=== PATIENT | male | born 1940 | race Caucasian/White ===

== ENCOUNTER 2017-01-24 16:30 | Inpatient (IN) | payer MEDICARE ==
[2017-01-24] MEDS ORDERED: NS 0.9% 1000 ML* 1,000 ML IV ONE (17:05)
[2017-01-24] MEDS ORDERED: Pantoprazole IV* 40 MG IV ONE (17:05)
[2017-01-24 17:50] LABS: Hematocrit 44 % (42-52); Hemoglobin 14.3 g/dl (14.0-18.0); Mean Corpuscular HGB Conc 33 g/dl (31-36); Mean Corpuscular Hemoglobin 30 pg (27-31); Mean Corpuscular Volume 93 fL (80-94); Mean Platelet Volume 9 um3 (7.4-10.4); Red Blood Count 4.75 10^6/ul (4.0-5.4); Red Cell Distribution Width 15 % (10.5-15)
[2017-01-24 18:06] LABS: Albumin 3.8 g/dL (3.2-5.2); Calcium 9.1 mg/dL (8.6-10.3); EGFR African American 118.5 (>60); EGFR Non-African American 92.2 (>60); Globulin 2.7 g/dL (2-4); Potassium 4.2 mmol/L (3.5-5.0); Total Bilirubin 0.7 mg/dL (0.2-1.0); Total Protein 6.5 g/dL (6.4-8.9)
[2017-01-24] MEDS ORDERED: Phytonadione INJ (Adult)* 10 MG/ML 1 ML AMP IV ONE (18:11)
[2017-01-24] MEDS ORDERED: Ondansetron INJ* 2 MG/ML VIAL IV ONE (18:45)
[2017-01-24] MEDS ORDERED: Ondansetron INJ* 2 MG/ML VIAL ONE (18:46)
[2017-01-24] MEDS ORDERED: Phytonadione INJ* 1 MG/0.5 ML ML IM ONE (19:00)
[2017-01-24] MEDS: NS 0.9% 1000 ML* 1,000 ML IV SCH (20:48)
[2017-01-24] MEDS: Metoprolol Tartrate IV* 1 MG/ML 5 ML VIAL IV SCH (20:53)
[2017-01-24] MEDS: Pantoprazole IV* 80 MG in NS 0.9% 250 ML* 250 ML IVPB SCH (20:53)
[2017-01-24 21:46] LABS: Hematocrit 40 % (42-52); Hemoglobin 13.4 g/dl (14.0-18.0)
[2017-01-24] MEDS ORDERED: Phytonadione INJ (Adult)* 10 MG/ML 1 ML AMP IM ONE (22:00)
[2017-01-24] MEDS ORDERED: PROCHLORPERAZINE INJ 5 MG/ML 2 ML VIAL ONE (22:07)
[2017-01-24] MEDS: PROCHLORPERAZINE INJ 5 MG/ML 2 ML VIAL IV PRN (22:08)
[2017-01-24] MEDS: Morphine INJ* 2 MG/ML 1 ML CARPUJECT IV PRN (22:49)
--- NOTE | 2017-01-24 23:08 | HP ---
CC: Dr. Hayes* ADMISSION HISTORY AND PHYSICAL: DATE OF ADMISSION: 01/24/2017. PRIMARY CARE PROVIDER: Dr. Hayes. CONSULTING MANAGER DATABASE ADMINISTRATION: Dr. Bolaños. ADMITTING PROVIDER: NÉSTOR Jamison SUPERVISING PHYSICIAN: Dr. Lee Delgado* (dictated by NÉSTOR Jamison). CHIEF COMPLAINT: Hematemesis and coffee-ground emesis. HISTORY OF PRESENT ILLNESS: This is a 76-year-old gentleman with a significant vascular history including coronary artery disease and peripheral vascular disease as well as atrial fibrillation for which he is anticoagulated with Coumadin, who presented to the emergency department with complaints of dark brown emesis and dark stools that started acutely at about 4 a.m. this morning. He reports some associated lower abdominal pain and his stools prior to today have been normal. He denies any history of prior GI bleed. He states that over the last week, he has been having lot of low back pain and took approximately 6 pills of Aleve over the last week. He generally takes oxycodone when he has pain, but that was not taking away all of his discomfort. He denies any associated chest pain or shortness of breath. He denies any other acute illness. The patient had an episode of coffee-ground emesis in the emergency department and a rectal exam was performed. Stool is heme positive. Emesis sample has been ordered, but not reported. PAST MEDICAL HISTORY: 1. Atrial fibrillation. 2. Coronary artery disease. 3. Peripheral vascular disease. PAST SURGICAL HISTORY: 1. AAA repair. 2. CABG. 3. Right leg amputation. 4. ORIF of uncertain body part. 5. Inguinal hernia repair. 6. Unspecified bypass procedure to the left leg. HOME MEDICATIONS: 1. Atorvastatin 80 mg p.o. daily. 2. Cipro 500 mg p.o. daily. 3. Celexa 20 mg p.o. daily. 4. Gabapentin 300 mg p.o. at bedtime. 5. Losartan 50 mg p.o. daily. 6. Metoprolol tartrate 50 mg p.o. twice daily. 7. Multivitamin 1 tablet p.o. daily. 8. Protonix 40 mg p.o. daily. 9. Flomax 0.4 mg p.o. daily. 10. Coumadin 5 mg p.o. daily. SOCIAL HISTORY: The patient lives at home with his . He denies any regular alcohol consumption or smoking history. REVIEW OF SYSTEMS: As noted above in HPI. All other systems reviewed and otherwise negative. PHYSICAL EXAMINATION GENERAL: This is a pleasant elderly gentleman, who is lying comfortably in hospital bed, in no acute distress. VITAL SIGNS: Initially, temperature 96.1 degrees Fahrenheit, pulse is 115 beats per minute, respiratory rate 20, oxygen saturation 99% on room air, and blood pressure 100/51 mmHg. Most recent heart rate recorded at 109 beats per minute and blood pressure 153/78 mmHg. HEENT: Head is normocephalic, atraumatic. Mucous membranes are pink and moist. RESPIRATORY: Lungs are clear to auscultation without wheezes, crackles, or rhonchi. CARDIOVASCULAR: Heart has a slightly irregular rhythm, but controlled rate without murmurs, rubs, or gallops. ABDOMEN: Soft and nontender to palpation. EXTREMITIES: The patient is status post above the amputation on the right. Left lower extremity has multiple surgical scars and some edema in the foot, which is about 2+ and pitting. PSYCH: The patient is alert and appropriately oriented. DIAGNOSTIC STUDIES/LAB DATA: CBC shows white blood cell count of 13,000, hemoglobin of 14.3 g/dL, and platelet count of 164,000. INR of 3.1. Comprehensive metabolic panel shows sodium of 136, potassium 4.2, BUN of 51, creatinine 0.8, random glucose of 122. Transaminases and total bilirubin within normal limits. Ammonia 48. Imaging: EKG shows atrial fibrillation with right bundle branch block at about 90 beats per minute. ASSESSMENT AND PLAN: This is a 76-year-old gentleman with significant vascular history as well as atrial fibrillation, anticoagulated on Coumadin, who presents with complaints of hematemesis, coffee-ground emesis, and melena that started acutely at 4 a.m. this morning. The patient has been admitted to the ICU for gastrointestinal bleed. 1. Gastrointestinal bleed - this appears to be an upper gastrointestinal bleed. His hemoglobin on first check is 14 g/dL and the patient is normotensive , although slightly tachycardic in the setting of atrial fibrillation. He does report recent nonsteroidal anti-inflammatory drug use, but no other risk factors for peptic ulcer disease. Dr. Bolaños has been made aware of this patient and will plan to see him in the morning or sooner if necessary. He is currently hemodynamically stable, but has been admitted to ICU as he is at high risk for decompensation. We will plan to repeat H and H every 4 hours. We will provide IV fluids and start Protonix drip at this time. Maintain n.p.o. 2. Atrial fibrillation - the patient is mildly tachycardic in the emergency department. We will hold his oral metoprolol in the setting of gastrointestinal bleeding, but start him on scheduled IV Lopressor for additional rate control. The patient's INR was 3.1 at the time of admission. He has received 2 units of FFP and 10 mg of vitamin K to reverse his INR in the setting of active bleeding. 3. Coronary artery disease - the patient is asymptomatic. His home medications will be held at this time. 4. Peripheral vascular disease. 5. Code status. The patient is full code. 6. Healthcare proxy is his . 7. DVT prophylaxis. The patient will be prescribed SCDs, avoid any anticoagulation medications in the setting of active bleeding. NÉSTOR JAMISON [id number]/[facility] #: [id number] CASSANDRA
[2017-01-25] MEDS: Ondansetron INJ* 2 MG/ML VIAL IV PRN ×3 (00:16→23:46)
[2017-01-25 01:45] LABS: Hematocrit 33 % (42-52); Hemoglobin 11.2 g/dl (14.0-18.0)
[2017-01-25] MEDS: Metoprolol Tartrate IV* 1 MG/ML 5 ML VIAL IV SCH ×4 (02:39→20:38)
[2017-01-25] MEDS: NS 0.9% 1000 ML* 1,000 ML IV SCH ×3 (05:00→21:23)
[2017-01-25 05:54] LABS: Hematocrit 34 % (42-52); Hemoglobin 11.3 g/dl (14.0-18.0)
[2017-01-25 06:05] LABS: BUN/Creatinine Ratio 74.7 (8-20); Calcium 8.8 mg/dL (8.6-10.3); EGFR African American 129.5 (>60); EGFR Non-African American 100.7 (>60)
[2017-01-25] MEDS: Pantoprazole IV* 80 MG in NS 0.9% 250 ML* 250 ML IVPB SCH ×2 (06:35→16:23)
[2017-01-25] MEDS ORDERED: NS 0.9% 500 ML BAG* 500 ML IV ONE (07:05)
--- NOTE | 2017-01-25 07:39 | PN ---
Progress Note - Progress Note Date of Service: 01/25/17 Note: Nursing called requesting evaluation for tachycardia 140-180s. Upon arrival, Mr Thorne, a 76YO male admitted for GI bleed, is lying in bed tachypneic in the 30s, tachycardic 140-180s, & diaphoretic. He admitted to malaise & SOB, but no chest pain. 1L fluid bolus was ordered @1L/hr then to decrease to 150cc/hr. CBC had been sent and was pending. Lactic acid and troponin were ordered. ECG was negative for STEMI. 15-20min after fluid bolus initiated, his HR spontaneously decreased to an AFIB in the 80-90s & he felt notably better. Assessment: plan severe tachycardia : suspect SVT : awaiting lab results : checked out to Suzy Souza MD lead
[2017-01-25] MEDS: PROCHLORPERAZINE INJ 5 MG/ML 2 ML VIAL IV PRN (07:55)
[2017-01-25] MEDS: Morphine INJ* 2 MG/ML 1 ML CARPUJECT IV PRN ×2 (07:55→21:32)
[2017-01-25 08:01] LABS: Mean Corpuscular HGB Conc 33 g/dl (31-36); Mean Corpuscular Hemoglobin 31 pg (27-31); Mean Corpuscular Volume 92 fL (80-94); Mean Platelet Volume 9 um3 (7.4-10.4); Red Cell Distribution Width 15 % (10.5-15); White Blood Count 11.9 10^3/ul (3.5-10.8)
[2017-01-25] MEDS ORDERED: fentaNYL* 50 MCG/ML 2 ML VIAL (100 MCG VIAL) ONE (08:49)
[2017-01-25] MEDS ORDERED: Midazolam* 1 MG/ML 10 ML VIAL (10 MG) ONE (08:50)
--- NOTE | 2017-01-25 08:59 | PN ---
Subjective Date of Service: 01/25/17 Interval History: Patient seen and examined at bedside. Patient had episode of diaphoresis and high rate afib or SVT early this AM. No further episodes. Patient denies pain/ dizziness at this time and is rate controlled now in afib. H/H stable Family History: Unchanged from Admission Social History: Unchanged from Admission Past Medical History: Unchanged from Admission Objective Active Medications: Sodium Chloride (Ns 0.9% 1000 Ml*) 1,000 mls @ 125 mls/hr IV PER RATE THALIA Pantoprazole Sodium 80 mg/ (Sodium Chloride) 250 mls @ 25 mls/hr IVPB Q10H THALIA Metoprolol Tartrate (Lopressor Iv*) 5 mg IV Q6H THALIA Morphine Sulfate (Morphine Inj (Syringe)*) 2 mg IV Q4H PRN Ondansetron HCl (Zofran Inj*) 4 mg IV Q4H PRN Prochlorperazine Edisylate (Compazine Inj*) 5 mg IV Q6H PRN 01/25/17 08:30 Temperature Pulse Rate 75 Respiratory 8 Rate Blood Pressure 142/78 (mmHg) O2 Sat by Pulse 97 Oximetry Oxygen Devices in Use Now: Nasal Cannula Appearance: laying in bed, NAD Eyes: No Scleral Icterus, PERRLA Ears/Nose/Mouth/Throat: NL Teeth, Lips, Gums Neck: NL Appearance and Movements; NL JVP Respiratory: Symmetrical Chest Expansion and Respiratory Effort, Clear to Auscultation Cardiovascular: NL Sounds; No Murmurs; No JVD, RRR Abdominal: NL Sounds; No Tenderness; No Distention Extremities: - - 1+ edema; s/p R leg amp Skin: No Rash or Ulcers Neurological: Alert and Oriented x 3, NL Muscle Strength and Tone Lines/Tubes/Other Access: Clean, Dry and Intact Peripheral IV Nutrition: Taking PO's Result Diagrams: 01/25/17 05:15 01/25/17 05:15 Assess/Plan/Problems-Billing Patient is a 76 y/o M w/ PMH significant for atrial fibrillation (on warfarin), CAD, PAD s/p unknown bypass procedure who presents to the ED with the c/o of nausea vomiting w/ coffee ground emesis admitted for upper GI bleed. - Patient Problems (1) Upper GI bleed Comment: Appreciate GI input. EGD now. H/H stable. Continue to monitor q6h. COntinue IV protonix and IVF. INR reversed yesterday with vitamin K and FFP. (2) Lactic acidosis Comment: Lactic up to 3.7 this morning. Given hx of PAD and CAD there is the possibility of ischemic bowel. Continue aggressive IVF resuscitation and recheck lactic acid in 4 hrs. (3) Atrial fibrillation with rapid ventricular response Comment: Had an episode of high rate afib/SVT this AM. Resolved with additional fluid administration. Continue standing IV Metoprolol for rate control. (4) CAD (coronary artery disease) Comment: Continue beta elva IV. Statin on hold. (5) PAD (peripheral artery disease) Comment: Obtaining records from [place] regarding bypass. (6) DVT prophylaxis Comment: SCDs only (7) Full code status Status and Disposition: Inpatient for GI bleed. Plan to discharge home when stable.
[2017-01-25 10:00] LABS: Hematocrit 25 % (42-52); Hemoglobin 8.3 g/dl (14.0-18.0)
--- NOTE | 2017-01-25 13:56 | CONS ---
GASTROENTEROLOGY CONSULT: DATE: 01/25/17 CONSULTING PHYSICIANS: Sunshine Hayes; NÉSTOR Mariscal REASON FOR CONSULTATION: Hematemesis and melena with elevated BUN in a man on warfarin for chronic atrial fibrillation HISTORY: This 76-year-old man on warfarin for AFib has been having some back pain. He took some Aleve over the last week. Yesterday morning he started feeling nauseated and vomited up some blood and he was also passing dark stool. His hemoglobin was 14, BUN 50, INR 3.1. In the emergency room, he vomited up small amounts of blood a couple more times , but his vitals seem stable. He was admitted to the ICU and placed on a Protonix drip and FFP and vitamin K given. At home he takes Protonix regularly, though he is not sure why. He is on a regular diet. He says he has never had an upper endoscopy and reviewing the old and new databases just reveals colonoscopies in [address] Love. He is followed by Dr Be for atrial fibrillation. He has severe peripheral vascular disease - see below. PAST MEDICAL HISTORY: 1. Coronary artery disease - status post bypass, 2005. 2. Endovascular aortic aneurysm repair. 3. Vascular bypass procedures right leg - ultimately failed. 4. AKA amputation right leg. 5. Left subclavian revascularization, left leg at strong. 6. Cerebrovascular disease - history of TIA. Refer to an January [address] Be. 7. Atrial fibrillation. 8. History of adenomatous colon polyp - 2009, removed by Dr. Love via biopsy at the hepatic flexure. 9. GERD. 10. Hypertension. 11. Anxiety. MEDICATIONS: At home: Protonix 40 mg a day, Warfarin, Amlodipine plus others Please see the admission history and physical on medication reconciliation. SOCIAL HISTORY: He is retired from [employer]. He is , says his is in good health, but she was not present for the history in the emergency room or in the intensive care unit in the morning of his endoscopy. He has 1 child, a daughter who he says is mentally disabled, living in [place]. REVIEW OF SYSTEMS: No history of actual CVA, seizures, palpitations, syncope, acute coronary syndrome within the last year, hepatitis, jaundice, gallstones, intra-abdominal surgery. He has a history of diverticulosis on his colonoscopies. No history of rash, dermatologic problems, migraines or recent fevers. He was taking the Aleve for low back pain. He eats a general diet provided by [employer] and points out "it is terrible." PHYSICAL EXAMINATION: In the ICU, blood pressure 100/60, pulse 110 and irregular. He had received some Compazine and morphine and was somewhat soft spoken and distant. He is oriented x3 and could answer questions about locations of his medical care. HEENT exam shows no icterus. He has no adenopathy. There is a fullness to his neck anteriorly. He has a bypass coming over the left clavicle with minimal thrill. Lungs are clear, though limited by exam in bed. Heart sounds are normal without murmur, but irregular. The abdomen is mildly obese, either flat or distended with diminished bowel sounds, essentially absent. He is tender diffusely to palpation, though there is no rigidity or guarding. Rectal was done in the emergency room and he is clearly bleeding. HOSPITAL COURSE: Since being admitted to the ICU, he has not had any further vomiting or melena or diarrhea. His first followup hemoglobin was 11.2 and then another 6 hours later 11.3, but in the interim began complaining of nausea. It was a very prominent complaint and he had been medicated. There has been no vomiting. IMPRESSION: This 76-year-old man, for many years a vasculopath on chronic warfarin, took Aleve and now has a pattern of an upper gastrointestinal bleed. While his hemoglobin does not document a very large bleed, the nausea could represent that, with a failure to pass stool from ileus though that is somewhat unusual. It might also reflect ischemic bowel and overall he has a very concerning appearance. At the moment, reversing the warfarin will be allowed to proceed and he will have upper endoscopy expeditiously as identifying the source of bleeding and prognosis of it is clearly the top priority. Absolute avoidance of NSAIDs will be a later priority. [id number]/[facility] #: [id number] [facility]ALS[facility]
[2017-01-25 16:35] LABS: Hematocrit 27 % (42-52); Hemoglobin 9.1 g/dl (14.0-18.0)
--- NOTE | 2017-01-25 18:20 | ED ---
Thien Hare Angela, scribed for Mj Mcclain MD on 01/24/17 at 1701 . GI/ HPI - HPI Summary HPI Summary: This pt is a 76 y/o male presenting to [facility] c/o hematemesis since 0400 today. Pt reports he is on Warfarin for atrial fibrillation. Pt notes associated symptoms of epigatric pain and black stools today. hsa provided a jar of vomit with maroon coffee ground appearance. PMHx: AAA, carotid stenosis, DVT. Pt has no PMHx of CHF. - History of Current Complaint Chief Complaint: EDGIBleed Stated Complaint: VOMITTING BLOOD Hx Obtained From: Patient, Family/[employer] - Onset/Duration: Started Hours Ago Timing: Lasting Hours Pain Intensity: 5 Associated Signs and Symptoms: Positive: Hematemesis, Nausea, Vomiting, Black Tarry Stool, Abdominal Pain. Negative: Diarrhea - Allergy/Home Medications Allergies/Adverse Reactions: Allergies Allergy/AdvReac Type Severity Reaction Status Date / Time Atenolol Allergy Unknown Unknown Verified 12/01/13 10:42 Reaction Details Lisinopril Allergy Unknown Unknown Verified 12/01/13 10:42 Reaction Details Home Medications: Home Medications Atorvastatin* [Lipitor*] 80 mg PO DAILY 01/24/17 [History Confirmed 01/24/17] Ciprofloxacin TAB* [Cipro 500 MG TAB*] 500 mg PO DAILY 01/24/17 [History Confirmed 01/24/17] Epinephrine [Epipen 2-Gokul] 0.3 mg IM ONCE PRN 01/24/17 [History Confirmed ] Losartan TAB* [Cozaar TAB*] 50 mg PO DAILY 01/24/17 [History Confirmed 01/24/17] Multivitamins/Minerals TAB* [Theragran/minerals TAB*] 1 tab PO DAILY 01/24/17 [ History Confirmed 01/24/17] Tamsulosin CAP* [Flomax CAP*] 0.4 mg PO DAILY 01/24/17 [History Confirmed ] PMH/Surg Hx/FS Hx/Imm Hx Endocrine/Hematology History: Denies: Hx Anticoagulant Therapy, Hx Blood Disorders, Hx Blood Transfusions, Hx Bone Marrow Disease, Hx Diabetes, Hx Systemic Lupus Erythematosus, Hx Sickle Cell Disease, Hx Thyroid Disease, Hx Anemia, Hx Unexplained Bleeding, Other Endocrine/Hematological Disorders Cardiovascular History: Reports: Hx Aneurysm, Hx Angina, Hx Angioplasty, Hx Coronary Artery Disease, Hx Hypercholesterolemia, Hx Hypertension, Other Cardiovascular Problems/Disorders - by pass with stent placement Denies: Hx Auto Implanted Cardiovert Defib, Hx Cardiac Arrest, Hx Cardiomegaly, Hx Congenital Heart Disease, Hx Congestive Heart Failure, Hx Deep Vein Thrombosis, Hx Hypotension, Hx Pacemaker/ICD, Hx Peripheral Vascular Disease, Hx Rheumatic Fever, Hx Syncope, Hx Valvular Heart Disease Respiratory History: Reports: Hx Sleep Apnea - new dx; needs equipment set up, Other Respiratory Problems/Disorders - collapsed lung left in 2009 Denies: Hx Asthma, Hx Cystic Fibrosis, Hx Lung Cancer, Hx Pleural Effusion, Hx Pneumonia, Hx Pulmonary Edema, Hx Pulmonary Embolism, Hx Seasonal Allergies GI History: Reports: Hx Hiatal Hernia Denies: Hx Cirrhosis, Hx Crohn's Disease, Hx Diverticulosis, Hx Gall Bladder Disease, Hx Gastroesophageal Reflux Disease, Hx Gastrointestinal Bleed, Hx Irritable Bowel, Hx Jaundice, Hx Obstructive Bowel, Hx Ileostomy, Hx Pyloric Stenosis, Hx Ulcer, Other GI Disorders History: Reports: Hx Benign Prostatic Hyperplasia Denies: Hx Acute Renal Failure, Hx Chronic Renal Failure, Hx Dialysis, Hx Kidney Infection, Hx Kidney Stones, Other Problems/Disorders Musculoskeletal History: Reports: Hx Arthritis - left knee. takes cortisone shots. also has it in back, Hx Back Problems Denies: Hx Rheumatoid Arthritis, Hx Bursitis, Hx Congenital Bone Abnormalities, Hx Fibromyalgia, Hx Gout, Hx Orthopedic Injury, Hx Osteoporosis, Hx Scoliosis, Hx Tendonitis, Other Musculoskeletal History Sensory History: Denies: Hx Cataracts, Hx Eye Injury, Hx Eye Prosthesis, Hx Glaucoma, Hx Macular Degeneration, Hx Vision Problem, Hx Deafness, Hx Hearing Aid, Hx Hearing Problem, Other Sensory Impairments Opthamlomology History: Denies: Hx Cataracts, Hx Eye Injury, Hx Eye Prosthesis, Hx Glaucoma, Hx Macular Degeneration, Hx Vision Problem, Other Sensory Impairments Neurological History: Reports: Other Neuro Impairments/Disorders - ARTHRITIS - Cancer History Hx Chemotherapy: No - Surgical History Surgery Procedure, Year, and Place: 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, cardiac stents, collapsed lung 2009, ankle surgery 2009 Hx Anesthesia Reactions: No Infectious Disease History: Yes Infectious Disease History: Denies: Hx Hepatitis, Hx Tuberculosis, Traveled Outside the [place] in Last 30 Days - Family History Known Family History: Positive: Cardiac Disease - Father: fatal [place] - Social History Alcohol Use: None Hx Substance Use: No Substance Use Type: Reports: None Hx Tobacco Use: No Smoking Status (MU): Never Smoked Tobacco Have You Smoked in the Last Year: No Review of Systems Negative: Fever, Chills Eyes: Negative Negative: Chest Pain Negative: Shortness Of Breath Positive: Abdominal Pain, Vomiting - hematemesis, Nausea, Other - black stools Genitourinary: Negative Skin: Negative All Other Systems Reviewed And Are Negative: Yes Physical Exam - Summary Physical Exam Summary: VITAL SIGNS: Reviewed. GENERAL: Patient is a well-developed and nourished, pale and dehydrated male who is lying comfortable in the stretcher. Patient is not in any acute respiratory distress. HEAD AND FACE: No signs of trauma. No ecchymosis, hematomas or skull depressions. No sinus tenderness. EYES: PERRLA, EOMI x 2, No injected conjunctiva, no nystagmus. EARS: Hearing grossly intact. Ear canals and tympanic membranes are within normal limits. MOUTH: Oropharynx within normal limits. NECK: Supple, trachea is midline, no adenopathy, no JVD, no carotid bruit, no c- spine tenderness, neck with full ROM. CHEST: Symmetric, no tenderness at palpation LUNGS: Clear to auscultation bilaterally. No wheezing or crackles. CVS: Irregular rate and rhythm, S1 and S2 present, no murmurs or gallops appreciated. ABDOMEN: Soft. There is epigastric tenderness. No signs of distention. No rebound no guarding, and no masses palpated. Bowel sounds are normal. Coffee ground emesis. Rectal exam: There is a small amount of melena. EXTREMITIES: FROM in all major joints, no edema, no cyanosis or clubbing. 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 NEURO: Alert and oriented x 3. No acute neurological deficits. Speech is normal and follows commands. SKIN: Dry and warm Triage Information Reviewed: Yes Vital Signs On Initial Exam: Initial Vitals Temp Pulse Resp BP Pulse Ox 96.1 F 115 20 100/51 99 01/24/17 16:40 01/24/17 16:40 01/24/17 16:40 01/24/17 16:40 01/24/17 16:40 Vital Signs Reviewed: Yes Diagnostics - Vital Signs Vital Signs Temp Pulse Resp BP Pulse Ox 01/24/17 16:40 96.1 F 115 20 100/51 99 - Laboratory Lab Results: Lab Results 01/24/17 01/24/17 01/24/17 Range/Units 17:37 17:37 17:37 WBC 13.0 H (3.5-10.8) 10^3/ul RBC 4.75 (4.0-5.4) 10^6/ul Hgb 14.3 (14.0-18.0) g/dl Hct 44 (42-52) % MCV 93 (80-94) fL MCH 30 (27-31) pg MCHC 33 (31-36) g/dl RDW 15 (10.5-15) % Plt Count 164 (150-450) 10^3/ul MPV 9 (7.4-10.4) um3 Neut % (Auto) 88.1 H (38-83) % Lymph % (Auto) 7.5 L (25-47) % Garrett % (Auto) 3.8 (1-9) % Eos % (Auto) 0 (0-6) % Baso % (Auto) 0.6 (0-2) % Absolute Neuts (auto) 11.4 H (1.5-7.7) 10^3/ul Absolute Lymphs (auto) 1.0 (1.0-4.8) 10^3/ul Absolute Monos (auto) 0.5 (0-0.8) 10^3/ul Absolute Eos (auto) 0 (0-0.6) 10^3/ul Absolute Basos (auto) 0.1 (0-0.2) 10^3/ul Absolute Nucleated RBC 0 10^3/ul Nucleated RBC % 0 INR (Anticoag Therapy) 3.15 H (0.89-1.11) APTT 48.0 H (26.0-36.3) seconds Sodium (133-145) mmol/L Potassium (3.5-5.0) mmol/L Chloride (101-111) mmol/L Carbon Dioxide (22-32) mmol/L Anion Gap (2-11) mmol/L BUN (6-24) mg/dL Creatinine (0.67-1.17) mg/dL Est GFR ( Amer) (>60) Est GFR (Non-Af Amer) (>60) BUN/Creatinine Ratio (8-20) Glucose (70-100) mg/dL Calcium (8.6-10.3) mg/dL Total Bilirubin (0.2-1.0) mg/dL AST (13-39) U/L ALT (7-52) U/L Alkaline Phosphatase (34-104) U/L Ammonia 48 (16-53) mol/L Total Protein (6.4-8.9) g/dL Albumin (3.2-5.2) g/dL Globulin (2-4) g/dL Albumin/Globulin Ratio (1-3) Blood Type Antibody Screen Crossmatch 01/24/17 01/24/17 Range/Units 17:37 17:37 WBC (3.5-10.8) 10^3/ul RBC (4.0-5.4) 10^6/ul Hgb (14.0-18.0) g/dl Hct (42-52) % MCV (80-94) fL MCH (27-31) pg MCHC (31-36) g/dl RDW (10.5-15) % Plt Count (150-450) 10^3/ul MPV (7.4-10.4) um3 Neut % (Auto) (38-83) % Lymph % (Auto) (25-47) % Garrett % (Auto) (1-9) % Eos % (Auto) (0-6) % Baso % (Auto) (0-2) % Absolute Neuts (auto) (1.5-7.7) 10^3/ul Absolute Lymphs (auto) (1.0-4.8) 10^3/ul Absolute Monos (auto) (0-0.8) 10^3/ul Absolute Eos (auto) (0-0.6) 10^3/ul Absolute Basos (auto) (0-0.2) 10^3/ul Absolute Nucleated RBC 10^3/ul Nucleated RBC % INR (Anticoag Therapy) (0.89-1.11) APTT (26.0-36.3) seconds Sodium 136 (133-145) mmol/L Potassium 4.2 (3.5-5.0) mmol/L Chloride 103 (101-111) mmol/L Carbon Dioxide 23 (22-32) mmol/L Anion Gap 10 (2-11) mmol/L BUN 51 H (6-24) mg/dL Creatinine 0.81 (0.67-1.17) mg/dL Est GFR ( Amer) 118.5 (>60) Est GFR (Non-Af Amer) 92.2 (>60) BUN/Creatinine Ratio 63.0 H (8-20) Glucose 122 H (70-100) mg/dL Calcium 9.1 (8.6-10.3) mg/dL Total Bilirubin 0.70 (0.2-1.0) mg/dL AST 15 (13-39) U/L ALT 11 (7-52) U/L Alkaline Phosphatase 60 (34-104) U/L Ammonia (16-53) mol/L Total Protein 6.5 (6.4-8.9) g/dL Albumin 3.8 (3.2-5.2) g/dL Globulin 2.7 (2-4) g/dL Albumin/Globulin Ratio 1.4 (1-3) Blood Type O Positive Antibody Screen Negative Crossmatch See Detail Result Diagrams: 01/25/17 16:15 01/25/17 05:15 Lab Statement: Any lab studies that have been ordered have been reviewed, and results considered in the medical decision making process. - EKG 1704 EKG Rhythm: Atrial Fibrillation - 89 bpm EKG Interpretation: right bundle branch block GIGU Course/Dx - Course Assessment/Plan: This pt is a 76 y/o male presenting to [facility] c/o hematemesis since 0400 today. Pt reports he is on Warfarin for atrial fibrillation. Pt notes associated symptoms of epigatric pain and black stools today. hsa provided a jar of vomit with maroon coffee ground appearance. PMHx: AAA, carotid stenosis, DVT. Pt has no PMHx of CHF. Test results without any significant abnormalities except for WBC of 13, H & H is stable, INR is 3.15, BUN is 51, and glucose is 122. In the ED course, the pt was started with 2 lines of IV access and was given IV fluids, 80 mg IV of protonix, vitamin K, and fresh frozen plasma. At this time, I discussed my physical exam findings and results with Ms. Ortega, who discussed with Dr. Johnson, and accepted the pt for admission. - Diagnoses Provider Diagnoses: GI bleed - Physician Notifications Discussed Care Of Patient With: Herbert Bolaños Time Discussed With Above Provider: 17:07 Instructed by Provider To: Other - I discussed the pt's case with IRAIS Prather. He agrees to continue giving the pt IV fluids and protonix. I also discussed with Ms. Ortega, who spoke to Dr. Johnson and accepted the pt for admission. - Critical Care Time Critical Care Time: 30-74 min Discharge - Discharge Plan Condition: Stable Disposition: ADMITTED TO [facility] The documentation as recorded by the Thien branch Angela accurately reflects the service I personally performed and the decisions made by me, Mj Mcclain MD.
--- NOTE | 2017-01-25 18:34 | PN ---
Progress Note - Progress Note Date of Service: 01/25/17 Note: Endoscopy today revealed a bleeding duodenal ulcer, which was clipped. Since then, no evidence of active bleeding. Hb was 8.3 at 9AM - received one unit packed RBCs, and repeat Hb was 9.1 at 4PM. We will check Hb later this evening. Patient is currently resting, and has no complaints.
[2017-01-25 21:54] LABS: Hematocrit 26 % (42-52); Hemoglobin 8.7 g/dl (14.0-18.0)
[2017-01-26] MEDS: Metoprolol Tartrate IV* 1 MG/ML 5 ML VIAL IV SCH ×4 (02:10→20:27)
[2017-01-26] MEDS: Pantoprazole IV* 80 MG in NS 0.9% 250 ML* 250 ML IVPB SCH ×3 (02:45→22:03)
[2017-01-26] MEDS: NS 0.9% 1000 ML* 1,000 ML IV SCH ×2 (05:25→13:34)
--- NOTE | 2017-01-26 05:51 | PRO ---
DATE: 01/25/17 - ROOM #410 REFERRING PHYSICIANS: Dr. Sunshine Hayes, Dr Homar Be * PROCEDURE: Upper gastrointestinal endoscopy and CLOtest and clipping of pyloric channel ulcer with oozing bleeding. INDICATION: Upper GI bleed with hematemesis and elevated melena. His hemoglobin initially in the emergency room was 14, dropped down to 11.2 and was stable 11.3 and post procedure was seemed to be 8.3. ENDOSCOPIST: Dr. Bolaños. MEDICATION: Midazolam 3, meperidine 50. FINDINGS: He is a chronically ill-appearing man with vascular bypass over the left clavicle, sternotomy scar, and status post right AKA. EGD: Larynx - dry mucous membranes. Esophagus - easily entered and the mucosa is normal in the upper, mid, and lower esophagus with the EG junction at 41 and then a small sliding hiatal hernia. There is a minimal ring but no erosions and no Pittman's change. Stomach - large amount of old blood in the fundus and splattered in the gastric body and proximal antrum. The rugal pattern appears normal. Lavage was not used because bleeding was subsequently identified. Views were moderately comprehensive during several insertion and withdrawal intervals including views of the gastric cardia in retroflexion. Approaching the pylorus, fresh blood was seen emanating from the pylorus oozing but not spurting. Duodenum - entered in the bulb, appeared to have contours. It was coated with fresh blood but there was no ulcer or scarring per se. The apex of the bulb had some layering blood but appeared not to have any fresh blood accumulation and suctioning do seem to clear this area and clear it. The second and third portions of the duodenum appeared normal apart from fresh blood that appeared to be coming from proximally. At that point coming back, an ulcer was seen in the pyloric channel 8 o'clock orientation. It did have some focal redness on the right hand margin duodenum. Two clips were applied. The first seeming fairly superficial and not likely therapeutic, so second one was nested in underneath it trying to drive down deeper into the mucosa. This appeared to be effective. There was no further oozing was seen. A CLOtest was taken in the mid gastric body and the procedure terminated. IMPRESSION: 1. [id number] hiatal hernia - no clinical sign of gastroesophageal reflux disease. 2. Pyloric channel ulcer - clipped. The PPI will be continued indefinitely and the Aleve that he took leading up to this presentation prohibited. 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 [id number]/[facility] #: [id number] [facility] HOSPITALTheo
[2017-01-26 05:56] LABS: Hematocrit 22 % (42-52); Hemoglobin 7.4 g/dl (14.0-18.0); Mean Corpuscular HGB Conc 33 g/dl (31-36); Mean Corpuscular Hemoglobin 31 pg (27-31); Mean Corpuscular Volume 93 fL (80-94); Mean Platelet Volume 8 um3 (7.4-10.4); Red Cell Distribution Width 15 % (10.5-15); White Blood Count 9.5 10^3/ul (3.5-10.8)
[2017-01-26 06:07] LABS: BUN/Creatinine Ratio 51.4 (8-20); EGFR African American 131.6 (>60); EGFR Non-African American 102.3 (>60); Potassium 3.3 mmol/L (3.5-5.0)
[2017-01-26] MEDS ORDERED: Potassium Chlor TAB* 20 MEQ TAB.ER PO ONE (06:20)
[2017-01-26] MEDS ORDERED: KCL 20 MEQ/100 ML IVPREMIX* 20 MEQ/100 ML BAG ONE (06:38)
[2017-01-26 07:09] LABS: Hematocrit 25 % (42-52); Hemoglobin 8.4 g/dl (14.0-18.0)
[2017-01-26] MEDS ORDERED: KCL 20 MEQ/100 ML IVPREMIX* 100 ML BAG IV ONE (08:00)
[2017-01-26] MEDS: Ondansetron INJ* 2 MG/ML VIAL IV PRN ×2 (08:25→16:21)
[2017-01-26] MEDS: PROCHLORPERAZINE INJ 5 MG/ML 2 ML VIAL IV PRN (09:36)
--- NOTE | 2017-01-26 12:17 | PN ---
Progress Note - Progress Note Date of Service: 01/26/17 Note: S: Patient seen while in ICU-5. States he still does not feel well. Has some abdominal discomfort. No nausea or emesis. O: Vital Signs 01/26/17 01/26/17 01/26/17 04:30 05:00 05:01 Temperature Pulse Rate 84 84 83 Respiratory 12 18 21 Rate Blood Pressure 160/80 156/83 (mmHg) O2 Sat by Pulse 96 98 95 Oximetry 01/26/17 01/26/17 01/26/17 05:31 06:00 06:01 Temperature Pulse Rate 74 77 77 Respiratory 12 16 16 Rate Blood Pressure 121/83 132/73 (mmHg) O2 Sat by Pulse 99 97 97 Oximetry 01/26/17 01/26/17 01/26/17 06:30 07:00 07:01 Temperature Pulse Rate 79 82 82 Respiratory 14 9 10 Rate Blood Pressure 149/82 143/71 (mmHg) O2 Sat by Pulse 98 96 97 Oximetry 01/26/17 01/26/17 01/26/17 07:30 08:00 08:01 Temperature 98 F Pulse Rate 73 89 92 Respiratory 17 14 23 Rate Blood Pressure 125/81 147/83 (mmHg) O2 Sat by Pulse 96 98 97 Oximetry 01/26/17 01/26/17 01/26/17 08:30 08:59 09:00 Temperature Pulse Rate 77 73 Respiratory 15 24 15 Rate Blood Pressure 126/83 (mmHg) O2 Sat by Pulse 98 99 Oximetry 01/26/17 01/26/17 01/26/17 09:01 09:30 10:00 Temperature Pulse Rate 81 78 80 Respiratory 27 18 19 Rate Blood Pressure 110/67 130/70 145/88 (mmHg) O2 Sat by Pulse 98 95 98 Oximetry 01/26/17 01/26/17 01/26/17 10:31 11:00 11:32 Temperature Pulse Rate 81 84 86 Respiratory 12 19 27 Rate Blood Pressure 129/79 125/71 123/82 (mmHg) O2 Sat by Pulse 99 98 100 Oximetry 01/26/17 01/26/17 12:00 12:01 Temperature Pulse Rate 76 91 Respiratory 21 16 Rate Blood Pressure 139/99 (mmHg) O2 Sat by Pulse 98 97 Oximetry GEN: Appears acutely ill but not in respiratory distress, conversant CHEST Clear bilaterally CV: Regular rate rhythm s1 s2 no rubs or gallops ABD: Soft, mild tenderness in suprapubic area and lower periumbilical area. no rebound or guarding Labs: Abnormal Lab Results 01/24/17 01/25/17 01/25/17 17:37 16:15 21:40 WBC RBC Hgb 9.1 L 8.7 L Hct 27 L 26 L MCV MCH MCHC RDW Plt Count MPV Neut % (Auto) Lymph % (Auto) [place] % (Auto) Eos % (Auto) Baso % (Auto) Absolute Neuts (auto) Absolute Lymphs (auto) Absolute Monos (auto) Absolute Eos (auto) Absolute Basos (auto) Absolute Nucleated RBC Nucleated RBC % Sodium Potassium Chloride Carbon Dioxide Anion Gap BUN Creatinine Est GFR ( Amer) Est GFR (Non-Af Amer) BUN/Creatinine Ratio Glucose Calcium Blood Type O Positive Antibody Screen Negative Crossmatch See Detail 01/26/17 01/26/17 01/26/17 05:40 05:40 06:30 WBC 9.5 RBC 2.40 L Hgb 7.4 L 8.4 L Hct 22 L 25 L MCV 93 MCH 31 MCHC 33 RDW 15 Plt Count 107 L MPV 8 Neut % (Auto) 70.2 Lymph % (Auto) 21.9 L [place] % (Auto) 6.3 Eos % (Auto) 0.8 Baso % (Auto) 0.8 Absolute Neuts (auto) 6.6 Absolute Lymphs (auto) 2.1 Absolute Monos (auto) 0.6 Absolute Eos (auto) 0.1 Absolute Basos (auto) 0.1 Absolute Nucleated RBC 0 Nucleated RBC % 0 Sodium 139 Potassium 3.3 L Chloride 111 Carbon Dioxide 24 Anion Gap 4 BUN 38 H Creatinine 0.74 Est GFR ( Amer) 131.6 Est GFR (Non-Af Amer) 102.3 BUN/Creatinine Ratio 51.4 H Glucose 97 Calcium 8.0 L d Blood Type Antibody Screen Crossmatch Impression: 76 year old male admitted to ICU with GI bleeding and foudn to have pyloric channel ulcer on 01.25.17 s/p clipping. Labs suggest some drop in Hb but repeat was 8.4. 1. Pyloric Channel Ulcer: Patient recently taking Aleve and shoudl be discontinued. Continue ppi infustion for a total of 72hrs. Clinically, does not appears to have active bleeding and Hb appears to be stable in 8s for now. Ok to start on clear today and continue to monitor in ICU for another 24hrs. Check H/H q8 for now. If Hb drops <7, he will need to be transfused and undergo repeat EGD.
[2017-01-26] MEDS: Morphine INJ* 2 MG/ML 1 ML CARPUJECT IV PRN (16:24)
--- NOTE | 2017-01-26 16:55 | PN ---
Critical Care Services: Has done well today - No evidence of active GI bleeding. Tolerating full liquid diet. AFib not a problem. Vital Signs: Temp Pulse Resp BP SpO2 FiO2 98.8 F 79 28 151/92 99 RA Physical Exam: Gen:Alert, oriented. Lungs: Clear Abdomen: No tenderness or distension. Extremities: Left A/K amputation. R leg warm. Fluid Balance (Past 24 Hours): 01/26/17 06:59 Intake Total 4292 Output Total 3050 Balance +1242 Weight 207 lb Intake: IV Fluids 1378 NS and KCl ns 1378 IVPB 1938 NS and KCl ns 1938 Medicated IV 576 Protonix 576 Oral 125 Packed Cells 275 Fresh Frozen Plasma Output: Urine 3050 Other: Date of Last Bowel 01/25/2017 Movement # Bowel Movements 1 Estimated Stool Amount Small Labs: 01/25/17 01/25/17 01/26/17 16:15 21:40 05:40 Hgb 9.1 8.7 Hct 27 26 Sodium 139 Potassium 3.3 L Chloride 111 Carbon Dioxide 24 Anion Gap 4 BUN 38 H Creatinine 0.74 Glucose 97 01/26/17 01/26/17 05:40 06:30 WBC 9.5 Hgb 7.4 8.4 Hct 22 25 MCV 93 Plt Count 107 L Studies: None today Nutrition: Full liquid diet Impression: No evidence of active GI hemorrhage for past 24 hrs.. Plan: Check Hb and Hct tonight, and again in AM. If no evidence of active bleeding by tomorrow AM, will transfer out of ICU and d/c protonix drip.
[2017-01-26] MEDS ORDERED: NS 0.9% 1000 ML* 1,000 ML IV SCH (17:01)
[2017-01-26 20:11] LABS: Hematocrit 26 % (42-52); Hemoglobin 8.7 g/dl (14.0-18.0)
[2017-01-27] MEDS: Metoprolol Tartrate IV* 1 MG/ML 5 ML VIAL IV SCH ×4 (02:39→19:51)
[2017-01-27] MEDS: Morphine INJ* 2 MG/ML 1 ML CARPUJECT IV PRN (03:58)
[2017-01-27] MEDS: Ondansetron INJ* 2 MG/ML VIAL IV PRN ×3 (03:59→23:36)
[2017-01-27 06:42] LABS: Hematocrit 25 % (42-52); Hemoglobin 8.4 g/dl (14.0-18.0); Mean Corpuscular HGB Conc 34 g/dl (31-36); Mean Corpuscular Hemoglobin 31 pg (27-31); Mean Corpuscular Volume 92 fL (80-94); Mean Platelet Volume 8 um3 (7.4-10.4); Red Blood Count 2.69 10^6/ul (4.0-5.4); Red Cell Distribution Width 15 % (10.5-15); White Blood Count 9.1 10^3/ul (3.5-10.8)
[2017-01-27 06:54] LABS: BUN/Creatinine Ratio 25.3 (8-20); Calcium 8.8 mg/dL (8.6-10.3); EGFR African American 129.5 (>60); EGFR Non-African American 100.7 (>60); Potassium 3.3 mmol/L (3.5-5.0)
[2017-01-27] MEDS: Pantoprazole IV* 80 MG in NS 0.9% 250 ML* 250 ML IVPB SCH (08:23)
--- NOTE | 2017-01-27 09:38 | PN ---
Critical Care Services: Patient had an uneventful evening, without evidence of active bleeding. Has been on protonix drip since 01/24. Vital Signs: Temp Pulse Resp BP SpO2 FiO2 98.9 F 70 10 155/93 91 97 Physical Exam: Gen: Alert and oriented. Abdomen:Soft, nontender. Extremities:Warm. No cyanosis. Fluid Balance (Past 24 Hours): 01/27/17 06:59 Intake Total 3216 Output Total 3850 Balance -634 Weight 206 lb Intake: IV Fluids 1506 NS and KCl 12 ns 1494 IVPB 202 NS and KCl 202 ns Medicated IV 538 Protonix 538 Oral 970 Packed Cells Fresh Frozen Plasma Output: Urine 3850 Other: Date of Last Bowel 01/26/17 Movement # Bowel Movements 1 Estimated Stool Amount Medium Labs: 01/26/17 01/27/17 01/27/17 19:55 06:22 06:22 WBC 9.1 Hgb 8.7 8.4 Hct 26 25 Plt Count 121 Sodium 140 Potassium 3.3 Chloride 110 Carbon Dioxide 25 BUN 19 Creatinine 0.75 Glucose 106 Calcium 8.8 Studies: None today Nutrition: Full Liquids - tolerating it well. Impression: Duodenal channel ulcer without evidence of active bleeding since endoscopy on . Plan: 1. D/C protonix drip and start IV bolus protonix. 2. Will transfer out of ICU. 3. Continue to monitor for evidence of GI bleeding. 4. ? advance diet (GI service to decide) Critical Care Time: 30 minutes
[2017-01-27] MEDS: Pantoprazole IV* 40 MG IV SCH (09:55)
[2017-01-27] MEDS: KCL 20 MEQ/100 ML IVPREMIX* 20 MEQ/100 ML BAG IV SCH ×2 (10:00→13:37)
--- NOTE | 2017-01-27 12:56 | PN ---
Progress Note - Progress Note Date of Service: 01/27/17 SOAP: Subjective: Patient states he feels somewhat weaker but feels well. No abdominal pain or nausea. [] Objective: Initial Vitals Temp Pulse Resp BP Pulse Ox 96.1 F 115 20 100/51 99 01/24/17 16:40 01/24/17 16:40 01/24/17 16:40 01/24/17 16:40 01/24/17 16:40 GEN: Appears well in no acute distress CHEST: Clear to auscultation bilaterally CV: Regular rate rhythm s1 no rubs or gallops ABD: soft, nontender, normoactive bowel sounds [] Labs: reviewed, appear stable. Laboratory Last Values WBC 9.1 10^3/ul (3.5-10.8) 01/27/17 06:22 RBC 2.69 10^6/ul (4.0-5.4) L 01/27/17 06:22 Hgb 8.4 g/dl (14.0-18.0) L 01/27/17 06:22 Hct 25 % (42-52) L 01/27/17 06:22 MCV 92 fL (80-94) 01/27/17 06:22 MCH 31 pg (27-31) 01/27/17 06:22 MCHC 34 g/dl (31-36) 01/27/17 06:22 RDW 15 % (10.5-15) 01/27/17 06:22 Plt Count 121 10^3/ul (150-450) L 01/27/17 06:22 MPV 8 um3 (7.4-10.4) 01/27/17 06:22 Neut % (Auto) 70.2 % (38-83) 01/26/17 05:40 Lymph % (Auto) 21.9 % (25-47) L 01/26/17 05:40 [place] % (Auto) 6.3 % (1-9) 01/26/17 05:40 Eos % (Auto) 0.8 % (0-6) 01/26/17 05:40 Baso % (Auto) 0.8 % (0-2) 01/26/17 05:40 Absolute Neuts (auto) 6.6 10^3/ul (1.5-7.7) 01/26/17 05:40 Absolute Lymphs (auto) 2.1 10^3/ul (1.0-4.8) 01/26/17 05:40 Absolute Monos (auto) 0.6 10^3/ul (0-0.8) 01/26/17 05:40 Absolute Eos (auto) 0.1 10^3/ul (0-0.6) 01/26/17 05:40 Absolute Basos (auto) 0.1 10^3/ul (0-0.2) 01/26/17 05:40 Absolute Nucleated RBC 0 10^3/ul 01/26/17 05:40 Nucleated RBC % 0 01/26/17 05:40 INR (Anticoag Therapy) 1.41 (0.89-1.11) H 01/25/17 05:15 APTT 48.0 seconds (26.0-36.3) H 01/24/17 17:37 Sodium 140 mmol/L (133-145) 01/27/17 06:22 Potassium 3.3 mmol/L (3.5-5.0) L 01/27/17 06:22 Chloride 110 mmol/L (101-111) 01/27/17 06:22 Carbon Dioxide 25 mmol/L (22-32) 01/27/17 06:22 Anion Gap 5 mmol/L (2-11) 01/27/17 06:22 BUN 19 mg/dL (6-24) 01/27/17 06:22 Creatinine 0.75 mg/dL (0.67-1.17) 01/27/17 06:22 Est GFR ( Amer) 129.5 (>60) 01/27/17 06:22 Est GFR (Non-Af Amer) 100.7 (>60) 01/27/17 06:22 BUN/Creatinine Ratio 25.3 (8-20) H 01/27/17 06:22 Glucose 106 mg/dL (70-100) H 01/27/17 06:22 POC Glucose (mg/dL) 111 mg/dL (70-100) H 01/25/17 05:05 Lactic Acid 2.4 mmol/L (0.5-2.0) H* 01/25/17 09:20 Calcium 8.8 mg/dL (8.6-10.3) 01/27/17 06:22 Total Bilirubin 0.70 mg/dL (0.2-1.0) 01/24/17 17:37 AST 15 U/L (13-39) 01/24/17 17:37 ALT 11 U/L (7-52) 01/24/17 17:37 Alkaline Phosphatase 60 U/L (34-104) 01/24/17 17:37 Ammonia 48 mol/L (16-53) 01/24/17 17:37 Troponin I 0.03 ng/mL (<0.04) 01/25/17 05:59 Total Protein 6.5 g/dL (6.4-8.9) 01/24/17 17:37 Albumin 3.8 g/dL (3.2-5.2) 01/24/17 17:37 Globulin 2.7 g/dL (2-4) 01/24/17 17:37 Albumin/Globulin Ratio 1.4 (1-3) 01/24/17 17:37 Blood Type O Positive 01/24/17 17:37 Antibody Screen Negative 01/24/17 17:37 Crossmatch See Detail 01/24/17 17:37 Assessment: GI Bleeding now resolved. [] Plan: 1. Ok to advance diet as tolerated. Ok to switch to twice daily ppi ( pantoprazole 40mg BID-AC or equivalent) for 2 months. Repeat EGD in 2-3 months to document healing. Avoid nsaids 2. Iron supplementation twice daily for 2 months and monthly CBC with iron studies. 3. Ok to discharge home this evening if tolerating diet and no evidence of GI bleeding.
[2017-01-27] MEDS ORDERED: Morphine INJ* 2 MG/ML 1 ML SYRINGE (TWO MG - NEW SYRINGE VERSION) IV PRN (13:31)
[2017-01-28] MEDS: Metoprolol Tartrate IV* 1 MG/ML 5 ML VIAL IV SCH ×2 (02:56→09:00)
[2017-01-28 07:29] LABS: Hematocrit 24 % (42-52); Hemoglobin 8.3 g/dl (14.0-18.0); Mean Corpuscular HGB Conc 34 g/dl (31-36); Mean Corpuscular Hemoglobin 32 pg (27-31); Mean Corpuscular Volume 93 fL (80-94); Mean Platelet Volume 8 um3 (7.4-10.4); Red Blood Count 2.62 10^6/ul (4.0-5.4); Red Cell Distribution Width 15 % (10.5-15); White Blood Count 8.3 10^3/ul (3.5-10.8)
[2017-01-28 07:50] LABS: BUN/Creatinine Ratio 18.5 (8-20); Calcium 8.7 mg/dL (8.6-10.3); EGFR African American 118.5 (>60); EGFR Non-African American 92.2 (>60); Potassium 3.3 mmol/L (3.5-5.0)
[2017-01-28] MEDS: Pantoprazole IV* 40 MG IV SCH (08:59)
[2017-01-28] MEDS ORDERED: Metoprolol Tartrate TAB* 50 mg PO SCH (09:00)
[2017-01-28] MEDS ORDERED: Citalopram TAB* 20 MG PO SCH (09:00)
[2017-01-28] MEDS ORDERED: Atorvastatin* 80 MG TAB PO SCH (09:00)
[2017-01-28] MEDS ORDERED: Losartan TAB* 25 MG PO SCH (09:00)
[2017-01-28] MEDS ORDERED: Tamsulosin CAP* 0.4 MG PO SCH (09:00)
[2017-01-28] MEDS ORDERED: Losartan TAB* 25 MG PO ONE (10:53)
[2017-01-28 12:48] VITALS: BP 142/54
[2017-01-28] MEDS ORDERED: Gabapentin CAP(*) 300 MG PO SCH (21:00)
--- NOTE | 2017-01-29 02:38 | DS ---
CC: Dr. Hayes; Dr. Bolaños * DISCHARGE SUMMARY: DATE OF ADMISSION: 01/24/17 DATE OF DISCHARGE: 01/28/17 PRIMARY CARE PROVIDER: Dr. Hayes. DISCHARGE DIAGNOSES: 1. Acute upper gastrointestinal bleed due to pyloric gastric ulcer status post clipping and endoscopy performed by Dr. Bolaños on 01/25/17. 2. Acute anemia due to acute gastrointestinal bleed, status post 1 unit of packed red blood cells transfusion during the hospital stay. SECONDARY DIAGNOSES: 1. History of atrial fibrillation, chronic. 2. History of coronary artery disease. 3. History of peripheral vascular disease, status post abdominal aortic aneurysm repair, right leg amputation, and bypass surgery to the left leg. 4. History of coronary artery bypass grafting. 5. History of right leg amputation. 6. History of inguinal hernia repair. The patient is on chronic ciprofloxacin due to chronic vascular graft infection suppression. MEDICATIONS AT DISCHARGE: Include: 1. Protonix 40 mg b.i.d. 2. Lipitor 80 mg daily. 3. Ciprofloxacin 500 mg b.i.d. 4. Celexa 20 mg daily. 5. EpiPen on a p.r.n. basis. 6. Neurontin 300 mg at bedtime. 7. Losartan 25 mg b.i.d. 8. Metoprolol tartrate 50 mg b.i.d. 9. Multivitamin 1 tablet daily. 10. Nitroglycerin on a p.r.n. basis. 11. Flomax 0.4 mg daily. At discharge, the patient is recommended to follow up with Dr. Hayes in approximately 1 week. Prior to seeing Dr. Hayes, the patient was instructed to have a CBC drawn and to be sent to Dr. Hayes's office. I had a discussion with the Gastroenterology. At patient's discharge, the patient recommended to be on a bland diet for another several days and then continue to a regular cardiac diet as previously used. He is to be off Coumadin until his return CBC as outpatient is stable and then under discretion of Dr. Hayes, the Coumadin can be restarted. HOSPITALIZATION COURSE: Elio Thorne is a 76-year-old male with history of peripheral artery disease and chronic atrial fibrillation. The patient had been on Coumadin and used to take an occasional Aleve for his chronic aches and pains. He presented to the hospital with hematemesis and coffee-ground emesis. He underwent an upper endoscopy on 01/25/17 during which it was noted that the patient had small- to-medium hiatal hernia and pyloric channel ulcer, which was clipped due to active oozing blood noted in the area. Postoperatively, the patient did very well. His diet was slowly advanced and Protonix was discontinued by the time of discharge. His PPI is to be increased to twice a day at discharge and to be continued to twice a day for another 2 months. The patient also is to have a repeat EGD in 2 to 3 months to document healing. PHYSICAL EXAMINATION AT THE TIME OF DISCHARGE: Blood pressure of 156/82, heart rate of 77 and irregular, respiratory rate 18, oxygen saturation 94% on room air , temperature 98.2. General: This is a very pleasant 76-year-old male who is in no acute distress. Alert, awake, and oriented x3. HEENT: Head is atraumatic, normocephalic. Eyes: Pupils are equal, round, reactive to light and accommodation. Oropharynx clear. Mucosa moist. Neck: Supple. No JVD, no bruits bilaterally. Cardiovascular: Irregularly regular rhythm with 2/6 systolic ejection murmur on auscultation of the left sternal area. Respiratory : Clear to auscultation bilaterally. Abdomen: Soft, nontender. Bowel sounds are present in all 4 quadrants. Extremities: The left foot appears to have a _ deformation with +1 pitting edema. 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 There is no clubbing or cyanosis. Neuro evaluation: Cranial nerves II through XII grossly intact. Motor strength is 5/5 bilaterally. Please note that this is a very short summary of the patient's hospitalization. Please refer to further medical records for details. TIME SPENT: Approximately 45 minutes were spent on patient's discharge. [id number]/[facility] #: [id number] MTDD
== END 2017-01-28 13:50 | disposition home or self-care (01) | DRG 378 ==
LOC: ED 16:30 → ICU 18:15 → MED 01-27 11:30
PROVIDERS: ADMIT Internal Medicine; ATTEND Internal Medicine
PROC: 30233K1 Transfusion of Nonautologous Frozen Plasma into Peripheral Vein, Percutaneous Approach (ICD-10-PCS; 2017-01-24)
PROC: 0W3P8ZZ Control Bleeding in Gastrointestinal Tract, Via Natural or Artificial Opening Endoscopic (ICD-10-PCS; principal; 2017-01-25)
PROC: 0DB68ZX Excision of Stomach, Via Natural or Artificial Opening Endoscopic, Diagnostic (ICD-10-PCS; 2017-01-25)
PROC: 30233N1 Transfusion of Nonautologous Red Blood Cells into Peripheral Vein, Percutaneous Approach (ICD-10-PCS; 2017-01-25)
DX: K25.0 Acute gastric ulcer with hemorrhage (principal); D62 Acute posthemorrhagic anemia; I48.2 Chronic atrial fibrillation; Z89.611 Acquired absence of right leg above knee; I25.10 Atherosclerotic heart disease of native coronary artery without angina pectoris; I73.9 Peripheral vascular disease, unspecified; I45.10 Unspecified right bundle-branch block; F41.9 Anxiety disorder, unspecified; K44.9 Diaphragmatic hernia without obstruction or gangrene; Z79.899 Other long term (current) drug therapy; Z79.01 Long term (current) use of anticoagulants; Z95.1 Presence of aortocoronary bypass graft
CPT/HCPCS: 36415; 80048; 80053; 82140; 82270; 82271; 83605; 84484; 85014; 85018; 85025; 85027; 85610; 85730; 86850; 86900; 86901; 86922; 86927; 87077; 87641; 93005; 99156; 99157; A9270-GY; J0780; J2250; J2270; J2405; J3010; J3430; J3480; P9017; P9040

== ENCOUNTER 2021-06-19 15:10 | Inpatient (IN) ==
[2021-06-19 16:48] LABS: ABS Lymphocytes 1.4 10^3/ul (1.0-4.8); ABS Monocytes 0.9 10^3/ul (0-0.8); ABS Neutrophils 6.9 10^3/ul (1.5-7.7); Eosinophil % 0.4 %; Hematocrit 46 % (42-52); Hemoglobin 15.7 g/dL (14.0-18.0); Mean Corpuscular HGB Conc 34 g/dL (31-36); Mean Corpuscular Hemoglobin 30 pg (27-31); Mean Corpuscular Volume 89 fL (80-94); Mean Platelet Volume 8.5 fL (7.4-10.4); Nucleated Red Blood Cells % 0.2; Platelet Count 212 10^3/uL (150-450); Red Cell Distribution Width 15 % (10-15); White Blood Count 9.3 10^3/uL (3.5-10.8)
[2021-06-19 16:58] LABS: Activated Partial Thrombo Time 43.5 seconds (26.0-38.0); INR 2.25 (0.86-1.15)
[2021-06-19 17:06] LABS: ALT 14 U/L (7-52); AST 21 U/L (13-39); Albumin/Globulin Ratio 1.3 (1-3); Alkaline Phosphatase 78 U/L (35-149); Anion Gap 10 mmol/L (2-11); Blood Urea Nitrogen 28 mg/dL (6-24); CO2 Carbon Dioxide 25 mmol/L (22-32); Calcium 10.6 mg/dL (8.6-10.3); Chloride 100 mmol/L (101-111); Glucose 94 mg/dL (70-100); Potassium 3.6 mmol/L (3.5-5.0); Sodium 135 mmol/L (135-145)
[2021-06-19 17:11] LABS: Troponin I 0.03 ng/mL (<0.03)
[2021-06-19] MEDS ORDERED: Pantoprazole 80 mg in NS BAG 80 MG/250 ML BAG IV ONE (18:00)
[2021-06-19] MEDS ORDERED: Pantoprazole VIAL 40 MG VIAL IV ONE (18:00)
[2021-06-19] MEDS ORDERED: Potassium Chlor 20 meq TAB.ER PO ONE (22:00)
[2021-06-19 22:23] LABS: Magnesium 1.4 mg/dL (1.9-2.7)
[2021-06-19 22:38] LABS: Hematocrit 45 % (42-52); Hemoglobin 15.4 g/dL (14.0-18.0); Mean Corpuscular HGB Conc 34 g/dL (31-36); Mean Corpuscular Hemoglobin 31 pg (27-31); Mean Corpuscular Volume 90 fL (80-94); Mean Platelet Volume 8.5 fL (7.4-10.4); Platelet Count 196 10^3/uL (150-450); Red Blood Count 5.02 10^6 /uL (4.18-5.48); Red Cell Distribution Width 15 % (10-15); White Blood Count 9.6 10^3/uL (3.5-10.8)
[2021-06-19] MEDS ORDERED: Magnesium Sulfate 2 gm BAG 2 GM/50 ML BAG IVPB ONE (23:45)
[2021-06-20 06:47] LABS: Hematocrit 45 % (42-52); Mean Corpuscular HGB Conc 33 g/dL (31-36); Mean Corpuscular Hemoglobin 30 pg (27-31); Mean Corpuscular Volume 91 fL (80-94); Mean Platelet Volume 8.2 fL (7.4-10.4); Platelet Count 192 10^3/uL (150-450); Red Blood Count 4.99 10^6 /uL (4.18-5.48); Red Cell Distribution Width 15 % (10-15); White Blood Count 8.6 10^3/uL (3.5-10.8)
[2021-06-20 06:53] LABS: INR 2.15 (0.86-1.15)
[2021-06-20 07:04] LABS: Magnesium 1.8 mg/dL (1.9-2.7); Potassium 3.8 mmol/L (3.5-5.0); eGFR CKD-EPI 78.9 (>60)
[2021-06-20 14:57] LABS: C Reactive Protein 4.62 mg/L (<8.01)
[2021-06-20] MEDS ORDERED: Midazolam 10 mg/10 ml VIAL 1 mg/ml 10 ml VIAL (10 mg) ONE (15:06)
[2021-06-20] MEDS ORDERED: fentaNYL 100 mcg/2 ml 50 MCG/ML VIAL ONE (15:06)
[2021-06-20] MEDS: Pantoprazole VIAL 40 MG VIAL IV SCH (20:44)
[2021-06-21 05:38] LABS: ABS Basophils 0.1 10^3/ul (0-0.2); ABS Eosinophils 0.4 10^3/ul (0-0.6); ABS Lymphocytes 1.9 10^3/ul (1.0-4.8); ABS Neutrophils 4.8 10^3/ul (1.5-7.7); Hematocrit 42 % (42-52); Lymphocyte % 22.7 %; Mean Corpuscular HGB Conc 34 g/dL (31-36); Mean Corpuscular Hemoglobin 30 pg (27-31); Mean Corpuscular Volume 90 fL (80-94); Mean Platelet Volume 8.8 fL (7.4-10.4); Platelet Count 172 10^3/uL (150-450); Red Cell Distribution Width 15 % (10-15); White Blood Count 8.2 10^3/uL (3.5-10.8)
[2021-06-21 05:54] LABS: Calcium 9.3 mg/dL (8.6-10.3); Magnesium 1.6 mg/dL (1.9-2.7); Potassium 3.4 mmol/L (3.5-5.0)
[2021-06-21] MEDS ORDERED: Magnesium Sulfate 2 gm BAG 2 GM/50 ML BAG IVPB ONE (06:43)
[2021-06-21] MEDS ORDERED: Potassium Chlor 20 meq TAB.ER PO ONE (07:00)
[2021-06-21 07:39] LABS: INR 1.97 (0.86-1.15)
[2021-06-21] MEDS: Pantoprazole VIAL 40 MG VIAL IV SCH (09:09)
[2021-06-21 12:42] VITALS: BP 112/67
== END 2021-06-21 13:30 | disposition home or self-care (01) | DRG 379 ==
LOC: ED 15:10 → EDHOLD 20:02 → SUATTDRO 20:02 → MEDTELE 06-20 12:48
PROVIDERS: ADMIT Internal Medicine; ATTEND Internal Medicine

== ENCOUNTER 2022-01-28 10:07 | Inpatient (IN) ==
[2022-01-28 11:01] LABS: ABS Basophils 0.1 10^3/ul (0-0.2); ABS Eosinophils 0.1 10^3/ul (0-0.6); ABS Lymphocytes 0.6 10^3/ul (1.0-4.8); ABS Monocytes 0.8 10^3/ul (0-0.8); ABS Neutrophils 10.1 10^3/ul (1.5-7.7); Eosinophil % 0.6 %; Hematocrit 44 % (42-52); Hemoglobin 14.9 g/dL (14.0-18.0); Lymphocyte % 5.2 %; Mean Corpuscular HGB Conc 34 g/dL (31-36); Mean Corpuscular Hemoglobin 31 pg (27-31); Mean Corpuscular Volume 91 fL (80-94); Mean Platelet Volume 8.3 fL (7.4-10.4); Nucleated Red Blood Cells % 0.1; Platelet Count 188 10^3/uL (150-450); Red Blood Count 4.85 10^6 /uL (4.18-5.48); Red Cell Distribution Width 15 % (10-15); White Blood Count 11.6 10^3/uL (3.5-10.8)
[2022-01-28 11:06] LABS: INR 1.37 (0.89-1.11)
[2022-01-28 11:47] LABS: Albumin 3.7 g/dL (3.2-5.2); Albumin/Globulin Ratio 1.4 (1-3); Calcium 10.1 mg/dL (8.6-10.3); Globulin 2.7 g/dL (2-4); Magnesium 1.3 mg/dL (1.9-2.7); Total Bilirubin 0.9 mg/dL (0.2-1.0); Total Protein 6.4 g/dL (6.4-8.9); eGFR CKD-EPI 79.4 (>60)
[2022-01-28] MEDS ORDERED: Ondansetron 4 mg VIAL 2 MG/ML 2 ml VIAL IV ONE (11:48)
[2022-01-28] MEDS ORDERED: Iohexol 350 (CONTRAST) 500 ML MDV IV ONE (12:13)
[2022-01-28] MEDS ORDERED: Labetalol IV 5 MG/ML 20 ml VIAL IV PUSH ONE (13:29)
[2022-01-28 14:23] LABS: High Sensitivity Troponin 1 Hr 489 pg/mL (<20)
[2022-01-28] MEDS ORDERED: Heparin DRIP 25,000 UNITS BAG 25,000 UNITS/500 ML BAG IV SCH (14:30)
[2022-01-28 17:16] LABS: ABS Eosinophils 0.1 10^3/ul (0-0.6); ABS Lymphocytes 1.1 10^3/ul (1.0-4.8); ABS Monocytes 0.7 10^3/ul (0-0.8); ABS Neutrophils 6.4 10^3/ul (1.5-7.7); Eosinophil % 0.7 %; Hematocrit 44 % (42-52); Hemoglobin 14.6 g/dL (14.0-18.0); Lymphocyte % 13.6 %; Mean Corpuscular HGB Conc 33 g/dL (31-36); Mean Corpuscular Hemoglobin 30 pg (27-31); Mean Corpuscular Volume 91 fL (80-94); Mean Platelet Volume 8.1 fL (7.4-10.4); Platelet Count 198 10^3/uL (150-450); Red Cell Distribution Width 15 % (10-15); White Blood Count 8.4 10^3/uL (3.5-10.8)
[2022-01-28 17:53] LABS: eGFR CKD-EPI 84.7 (>60)
[2022-01-28] MEDS ORDERED: Pantoprazole VIAL 40 MG VIAL IV SCH (18:00)
[2022-01-28 23:39] LABS: Urine Appearance Clear; Urine Bacteria Absent (Absent); Urine Bilirubin Negative (Negative); Urine Blood 1+ (Negative); Urine Color Yellow; Urine Glucose Negative (Negative); Urine Ketones Negative (Negative); Urine Nitrite Negative (Negative); Urine Protein Negative (Negative); Urine Red Blood Cell 2+(6-10/hpf) (Absent); Urine Specific Gravity 1.047 (1.002-1.030); Urine Urobilinogen Negative (Negative); Urine White Blood Cell Trace(0-5/hpf) (Absent)
[2022-01-29 05:16] LABS: ABS Basophils 0.1 10^3/ul (0-0.2); ABS Eosinophils 0.3 10^3/ul (0-0.6); ABS Lymphocytes 1.8 10^3/ul (1.0-4.8); ABS Monocytes 0.9 10^3/ul (0-0.8); ABS Neutrophils 4.2 10^3/ul (1.5-7.7); Eosinophil % 4.2 %; Hematocrit 41 % (42-52); Hemoglobin 13.5 g/dL (14.0-18.0); Lymphocyte % 24.9 %; Mean Corpuscular HGB Conc 33 g/dL (31-36); Mean Corpuscular Hemoglobin 30 pg (27-31); Mean Corpuscular Volume 91 fL (80-94); Mean Platelet Volume 8.2 fL (7.4-10.4); Platelet Count 184 10^3/uL (150-450); Red Cell Distribution Width 15 % (10-15); White Blood Count 7.3 10^3/uL (3.5-10.8)
[2022-01-29 05:40] LABS: Calcium 9.4 mg/dL (8.6-10.3); Potassium 3.7 mmol/L (3.5-5.0); eGFR CKD-EPI 74.7 (>60)
[2022-01-29 10:55] LABS: Magnesium 1.3 mg/dL (1.9-2.7)
[2022-01-29] MEDS ORDERED: Magnesium Sulf 4 GM/100 ML IV 4,000 MG/100 ML BAG IVPB ONE (11:04)
[2022-01-29 16:07] VITALS: BP 113/82
== END 2022-01-29 17:16 | disposition short-term general hospital (02) | DRG 395 ==
LOC: ED 10:07 → EDHOLD 16:31
PROVIDERS: ADMIT Internal Medicine; ATTEND Internal Medicine